=== PATIENT | male | born 1955 ===

== ENCOUNTER 2023-04-10 17:49 | Emergency (ER) | payer MEDICARE ==
[2023-04-10 18:25] VITALS: O2SAT 100
[2023-04-10 18:38] LABS: BASOPHILS # (AUTO) 0.1 10^3/uL (0.0-0.1); BASOPHILS % (AUTO) 1.2 %; EOSINOPHILS # (AUTO) 0.1 10^3/uL (0.0-0.7); EOSINOPHILS % (AUTO) 1.1 %; HCT - HEMATOCRIT 47.9 % (42.0-52.0); HGB - HEMOGLOBIN 15.8 g/dL (14.0-18.0); MEAN CORPUSCULAR HEMOGLOBIN 29.3 pg (27.0-31.0); MEAN CORPUSCULAR VOLUME 88.9 fL (80.0-94.0); MEAN PLATELET VOLUME 9.8 fL (7.4-11.4); MONOCYTES # (AUTO) 0.8 10^3/uL (0.0-1.0); MONOCYTES % (AUTO) 10.6 %; NEUTROPHILS # (AUTO) 5.4 10^3/uL (1.5-6.6); NEUTROPHILS % (AUTO) 72.8 %; PLT - PLATELET COUNT 250 10^3/uL (130-450); RED BLOOD COUNT 5.39 10^6/uL (4.70-6.10); RED CELL DISTRIBUTION WIDTH 12.6 % (12.0-15.0); WHITE BLOOD COUNT 7.5 x10^3/uL (4.8-10.8)
[2023-04-10 18:59] LABS: ALBUMIN 4.4 g/dL (3.2-5.5); ALBUMIN/GLOBULIN RATIO 1.5 (1.0-2.2); ALKALINE PHOSPHATASE 77 IU/L (42-121); ALT ALANINE AMINOTRANSFERASE 18 IU/L (10-60); AST ASPARTATE AMINOTRANSFERASE 23 IU/L (10-42); BILIRUBIN,TOTAL 1.2 mg/dL (0.2-1.0); BUN - BLOOD UREA NITROGEN 12 mg/dL (6-20); CALCIUM 10.6 mg/dL (8.5-10.3); CARBON DIOXIDE - CO2 30 mmol/L (21-32); CHLORIDE 96 mmol/L (101-111); CREATININE 0.9 mg/dL (0.6-1.3); GFR - MDRD 84 (>89); GLUCOSE 120 mg/dL (74-104); POTASSIUM 3.7 mmol/L (3.5-4.5); SODIUM 136 mmol/L (135-145); TOTAL PROTEIN 7.3 g/dL (6.4-8.9)
[2023-04-10 19:01] LABS: LIPASE < 10 U/L (11-82); TROPONIN I HIGH SENSITIVITY 5.5 ng/L (2.3-19.7)
--- NOTE | 2023-04-10 20:02 | ED Physician Documentation ---
History of Present Illness - Stated complaint Stated Complaint: DEHYDRATED - Chief complaint Chief Complaint: General - History obtained from History obtained from: Patient - Additonal information Additional information: 67-year-old gentleman presents with a chief complaint of I think I am dehydrated. He states that he has not been sleeping well or drinking well because his pipes have been frozen. They are fixed now. Denies nausea, diarrhea, pain. PD PAST MEDICAL HISTORY - Past Medical History Past Medical History: Yes Cardiovascular: Peripheral Vascular Disease Neuro: Peripheral neuropathy Endocrine/Autoimmune: Type 2 diabetes - Past Surgical History Cardiovascular: Other - Present Medications Home Medications: Ambulatory Orders Medication Instructions Recorded Confirmed Oxycodone HCl 15 mg PO QID 04/10/23 04/10/23 - Allergies Allergies/Adverse Reactions: Allergies Allergy/AdvReac Type Severity Reaction Status Date / Time No Known Drug Allergies Allergy Verified 04/10/23 18:10 - Social History Does the pt smoke?: No Smoking Status: Never smoker Does the pt drink ETOH?: No Substance Use and Type: Marijuana - Immunizations Immunizations are current?: Yes PD ED PE NORMAL - Vitals Vital signs reviewed: Yes - General General: Alert and oriented X 3, No acute distress - HEENT HEENT: Moist mucous membranes - Neuro Neuro: Alert and oriented X 3, Normal speech Results - Vitals Vitals: Vital Signs - 24 hr 04/10/23 04/10/23 18:04 21:05 Temperature 36.4 C L Heart Rate 77 72 Respiratory 16 16 Rate Blood Pressure 162/67 H 168/58 H O2 Saturation 100 100 Oxygen O2 Source Room air - EKG (time done) 1918 EKG releavant findings:: EKG personally interpreted by author of this note. Relevant findings are: Rate: Rate (enter#) (79) Rhythm: NSR [place]: Normal Intervals: Prolonged [place], Other (LAFB) QRS: Normal Ischemia: Normal ST segments - Labs Labs: Laboratory Tests 04/10/23 04/10/23 18:32 18:32 WBC 7.5 RBC 5.39 Hgb 15.8 Hct 47.9 MCV 88.9 MCH 29.3 MCHC 33.0 RDW 12.6 Plt Count 250 MPV 9.8 Neut # (Auto) 5.4 Lymph # (Auto) 1.0 L [place] # (Auto) 0.8 Eos # (Auto) 0.1 Baso # (Auto) 0.1 Absolute Nucleated RBC 0.00 Nucleated RBC % 0.0 Sodium 136 Potassium 3.7 Chloride 96 L Carbon Dioxide 30 Anion Gap 10.0 BUN 12 Creatinine 0.9 Estimated GFR (MDRD) 84 L Glucose 120 H Calcium 10.6 H Total Bilirubin 1.2 H AST 23 ALT 18 Alkaline Phosphatase 77 Troponin I High Sens 5.5 Total Protein 7.3 Albumin 4.4 Globulin 2.9 Albumin/Globulin Ratio 1.5 Lipase < 10 L PD Medical Decision Making - ED course ED course: 67-year-old gentleman presents thinking he is just dehydrated. CBC, CMP unremarkable. He is given a liter of IV fluids. Departure - Departure Disposition: 01 Home, Self Care Clinical Impression: Dehydration Condition: Good Record reviewed to determine appropriate education?: Yes Instructions: ED Dehydration Comments: No clear evidence that you are dehydrated but per your request she did receive some IV fluids. Call your doctor to arrange a follow-up appointment, make the next available appointment. In the interim, return anytime if worse or if new symptoms develop. Forms: PCP List Discharge Date/Time: 04/10/23 21:06
[2023-04-10] MEDS ORDERED: SODIUM CHLORIDE 0.9% 1,000 ML IV STA (20:27)
[2023-04-10 21:12] VITALS: BP 168/58
== END 2023-04-10 21:06 | disposition home or self-care (01) ==
LOC: ED 17:49
DX: E86.0 Dehydration (principal); E11.42 Type 2 diabetes mellitus with diabetic polyneuropathy
CPT/HCPCS: 36415; 80053; 83690; 84484; 85025; 93005; 99283; 99284

== ENCOUNTER 2023-04-23 09:54 | Outpatient (CLI) | payer MEDICARE ==
[2023-04-23 10:23] LABS: BASOPHILS # (AUTO) 0.1 10^3/uL (0.0-0.1); BASOPHILS % (AUTO) 1.1 %; EOSINOPHILS # (AUTO) 0.1 10^3/uL (0.0-0.7); EOSINOPHILS % (AUTO) 1.7 %; HCT - HEMATOCRIT 46.1 % (42.0-52.0); HGB - HEMOGLOBIN 15.2 g/dL (14.0-18.0); LYMPHOCYTES % (AUTO) 13.5 %; MEAN CORPUSCULAR HEMOGLOBIN 29.8 pg (27.0-31.0); MEAN CORPUSCULAR VOLUME 90.4 fL (80.0-94.0); MONOCYTES # (AUTO) 0.8 10^3/uL (0.0-1.0); MONOCYTES % (AUTO) 10.8 %; NEUTROPHILS # (AUTO) 5.2 10^3/uL (1.5-6.6); NEUTROPHILS % (AUTO) 72.8 %; PLT - PLATELET COUNT 251 10^3/uL (130-450); RED CELL DISTRIBUTION WIDTH 12.7 % (12.0-15.0); WHITE BLOOD COUNT 7.1 x10^3/uL (4.8-10.8)
[2023-04-23 10:39] LABS: ALBUMIN 4.2 g/dL (3.2-5.5); ALBUMIN/GLOBULIN RATIO 1.4 (1.0-2.2); ALKALINE PHOSPHATASE 61 IU/L (42-121); ALT ALANINE AMINOTRANSFERASE 16 IU/L (10-60); AST ASPARTATE AMINOTRANSFERASE 17 IU/L (10-42); BILIRUBIN,TOTAL 1.1 mg/dL (0.2-1.0); BUN - BLOOD UREA NITROGEN 17 mg/dL (6-20); CALCIUM 10.1 mg/dL (8.5-10.3); CARBON DIOXIDE - CO2 31 mmol/L (21-32); CHLORIDE 101 mmol/L (101-111); CHOL/HDL RATIO 3.5 (<5.0); CHOLESTEROL 148 mg/dL; CREATININE 0.9 mg/dL (0.6-1.3); GFR - MDRD 84 (>89); GLUCOSE 140 mg/dL (74-104); HDL CHOLESTEROL 42 mg/dL; LDL CHOLESTEROL,CALCULATED 91 mg/dL; LDL/HDL RATIO 2.2 (<3.6); POTASSIUM 4.7 mmol/L (3.5-4.5); SODIUM 138 mmol/L (135-145); TOTAL PROTEIN 7.2 g/dL (6.4-8.9); TRIGLYCERIDES 76 mg/dL (48-352); VLDL CHOLESTEROL 15 mg/dL
[2023-04-23 10:47] LABS: THYROID STIMULATING HORMONE 1.21 uIU/mL (0.34-5.60)
[2023-04-23 10:50] LABS: CREATININE,URINE 107.5 mg/dL; MICROALBUM/CREATININE RATIO,UR 6.5 ug/mg (<30.0); MICROALBUMIN,URINE 0.7 mg/dL
[2023-04-23 11:56] LABS: ESTIMATED AVERAGE GLUCOSE 146 mg/dL (70-100); HEMOGLOBIN A1c% 6.7 % (4.27-6.07)
[2023-04-24 02:08] LABS: HCV AB Non Reactive (Non Reactive)
== END 2023-04-23 09:55 | disposition home or self-care (01) ==
LOC: LAB 09:54
PROVIDERS: ATTEND Internal Medicine
DX: E11.9 Type 2 diabetes mellitus without complications (principal); Z11.59 Encounter for screening for other viral diseases; Z79.899 Other long term (current) drug therapy; I77.9 Disorder of arteries and arterioles, unspecified; E86.0 Dehydration
CPT/HCPCS: 36415; 80053; 80061; 82043; 82570; 83036; 83721; 84443; 85025; 86803